=== PATIENT | female | born 1970 | race Caucasian/White ===

== ENCOUNTER 2016-11-03 08:40 | Emergency (ER) | payer OTHER ==
[2016-11-03 08:45] VITALS: BMI 20.6
--- NOTE | 2016-11-03 09:15 | PDOC ---
History of Present Illness - General Chief Complaint: Revisit, Lab Variance Stated Complaint: REVISIT/ABNORMAL CT SCAN RESULT Time Seen by Provider: 11/03/16 08:50 History Source: Patient Exam Limitations: No Limitations - History of Present Illness Initial Comments: 11/03/16 09:10 Patient is a 45 year old otherwise healthy woman here today with abnormal imaging results. She has a CT scan that showed "nonspecific wall thickening is noted involving the lower third of the cecum as well as the proximal and middle thids of the appendix." She had the CT scan 3 days ago after reporting to her PCP with abdominal pain 5 days ago. She endorses nausea, fevers and a headache in addition to the abdominal pain 5 days ago. She's currently asymptomatic. She denies abdominal pain, nausea, vomiting, shortness of breath, chest pain, fevers , chills, and constipation. Past History - Past Medical History Allergies/Adverse Reactions: Allergies Allergy/AdvReac Type Severity Reaction Status Date / Time No Known Allergies Allergy Verified 11/03/16 10:08 Home Medications: Ambulatory Orders NK [No Known Home Medication] 11/03/16 Suicide Attempt (Hx): No Other medical history: none - Psycho/Social/Smoking Cessation Hx Anxiety: No Suicidal Ideation: No Smoking History: Never smoked Have you smoked in the past 12 months: No Information on smoking cessation initiated: No Hx Alcohol Use: No Drug/Substance Use Hx: No Substance Use Type: None Review of Systems - Review of Systems Constitutional: No: Chills, Fever Respiratory: No: Cough, Shortness of Breath Cardiac (ROS): No: Chest Pain, Lightheadedness ABD/GI: No: Constipated, Diarrhea, Nausea, Vomiting : No: Dysuria, Flank Pain Musculoskeletal: No: Joint Pain Neurological: No: Headache, Dizziness *Physical Exam - Vital Signs Last Vital Signs Temp Pulse Resp BP Pulse Ox 98.3 F 82 18 128/75 100 11/03/16 08:42 11/03/16 08:42 11/03/16 08:42 11/03/16 08:42 11/03/16 08:42 - Physical Exam Comments: 11/03/16 09:15 Gen: Well nourished, In no acute distress CV: RRR, no murmurs rubs or gallops Lungs: Normal work of breathing, clear to auscultation bilaterally Abd: Soft, nontender, normal bowel sounds Ext: 2+ pulses in both lower extremities, no edema Neuro: Awake, alert, CN2-12 intact, no focal neuro deficits ED Treatment Course - LABORATORY CBC & Chemistry Diagram: 11/03/16 09:50 11/03/16 09:50 Medical Decision Making - Medical Decision Making 11/03/16 09:18 Patient is a otherwise healthy 45F here today with a complaint of abnormal imaging results. No complaints today. Physical exam normal. Vital signs stable. Differential includes, but is not limited to: primary cecal/appendiceal infection/inflammation vs neoplastic disease. Will draw labs to confirm there's no evidence of anemia or an acute active infection. 11/03/16 12:16 Dr Santizo contacted. In agreement to consult Dr Arreola for surgical evaluation. Patient remains pain free with normal and stable vital signs. 11/03/16 13:26 Dr Arreola evaluated the patient and recommends outpatient follow up through the patient's primary care provider. Patient remains pain free, vital signs normal stable. Will discharge. *DC/Admit/Observation/Transfer Diagnosis at time of Disposition: Abdominal pain Qualifiers: Abdominal location: right lower quadrant Qualified Code(s): R10.31 - Right lower quadrant pain - Discharge Dispostion Disposition: HOME Condition at time of disposition: Good Admit: No - Referrals Referrals: David Santizo MD [Primary Care Provider] - - Patient Instructions Printed Discharge Instructions: DI for Abdominal Pain-Adult - Attestations Scribe Attestion: 11/03/16 13:24 I, Dr. Gamal Sanchez, attest that this document has been prepared under my direction and personally reviewed by me in its entirety. I further attest, that it accurately reflects all work, treatment, procedures and medical decision -making performed by me.
--- NOTE | 2016-11-03 09:58 | PDOC ---
Attending Attestation - Resident Resident Name: Gamal Sanchez - ED Attending Attestation I have performed the following: I have examined & evaluated the patient, The case was reviewed & discussed with the resident, I agree w/resident's findings & plan, Exceptions are as noted - HPI HPI: 11/03/16 09:58 healthy 45y/o F sent for further evaluation of abdominal pain. Pt in [facility], developed periumbilical abd pain 6d ago that increased in severity then localized the the RLQ. Last about one day then resolved to a dull 1/10 ache in the RLQ. Saw PMD 5d ago, CTAP performed 3d ago, called last night noting abnormalities in the RLQ. asx now. no pain. no f/c/n/v/d/c. - Physicial Exam PE: 11/03/16 09:59 VSS abd soft/nt/nd. bs nl. no guarding/rebound/referred pain. no cvat - Medical Decision Making 11/03/16 09:59 Patient seen and evaluated with the resident. I agree with the overall evaluation, assessment, and management with the following summary of visit: 45-year-old female with good history for appendicitis since to the ED for further evaluation of an abnormal CAT scan performed 3 days ago, 3 days following her symptoms. She is currently asymptomatic and her abdominal exam is completely benign. Question resolved infectious versus other inflammatory or neoplastic process. Will check labs and urinalysis Given her clinical presentation, will discuss with Dr. Santizo and consider avoiding repeat CT if possible.
[2016-11-03 10:15] LABS: BASOPHIL 0.9 % (0-2.0); EOSINOPHIL 1.1 % (0-4.5); MCH 31.7 pg (25.7-33.7); MEAN CELL VOLUME 90.7 fl (80-96); MEAN PLT VOLUME 7.1 fl (7.5-11.1); NEUTROPHILS 64.6 % (42.8-82.8); PLATELET COUNT 344 K/MM3 (134-434); RDW 12.4 % (11.6-15.6); WHITE BLOOD COUNT 7.4 K/mm3 (4.0-10.0)
[2016-11-03 10:20] LABS: URINE APPEARANCE CLEAR; URINE BILIRUBIN NEGATIVE (NEGATIVE); URINE BLOOD NEGATIVE (NEGATIVE); URINE COLOR LTYELLOW; URINE GLUCOSE (UA) NEGATIVE (NEGATIVE); URINE KETONE NEGATIVE (NEGATIVE); URINE LEUK ESTERASE NEGATIVE (NEGATIVE); URINE NITRITE NEGATIVE (NEGATIVE); URINE PROTEIN NEGATIVE (NEGATIVE); URINE UROBILINOGEN NEGATIVE E.U./dl (0.2-1.0)
[2016-11-03 10:34] LABS: ALBUMIN 3.7 g/dl (3.4-5.0); ALK PHOS 78 U/L (45-117); ANION GAP 9 (8-16); BILIRUBIN,TOTAL 0.4 mg/dL (0.2-1.0); CALCIUM 9.1 mg/dL (8.5-10.1); CO2 25 mmol/L (21-32); CREATININE 0.6 mg/dL (0.55-1.02); GLUCOSE,RANDOM 87 mg/dL (74-106); SGOT/AST 17 U/L (15-37); SGPT/ALT 28 U/L (12-78); TOT PROT 7.3 g/dl (6.4-8.2)
[2016-11-03 13:21] VITALS: BP 116/62; PULSE 71; TEMP 98.2
--- NOTE | 2016-11-03 13:43 | CONSULT ---
Consult Consult Specialty:: General Surgery Referred by:: Dr. Santizo Reason for Consultation:: RLQ pain and CT with mild appendicocecal inflammation - History of Present Illness Chief Complaint: abdominal pain last week with abnormal CT findings History of Present Illness: 45yo healthy F had periumbilical pain last Wednesday morning that she thought was gas, which localized more to RLQ by the middle of the day. It was ~9 /10 at worst, but she still ate that day, though had less appetite at dinner. No nausea or vomiting. Subjective fever (her thought she had one per pt) , no chills. No change in bowel habits, having regular BMs. No dysuria, though urine darkened a bit to orange at one point. The pain was still there Wednesday , but less, so she called and got appt with Dr. Santizo/PMD for . It was almost gone by the time she saw him. She said the nurse told her her urine might be infected then, but she has had no urinary symptoms. She was sent for CT , done 10/31, which was read as showing mild inflammation of the proximal cecum and appendix with no periappendiceal inflammatory changes. Dr. Santizo had her come back to the ER for evaluation, and she came in today. She now has no pain or tenderness, no bowel or bladder complaints, no f/c, no n/ v, eating well. In ER, wbc 7.4, afebrile. UA negative. Surgery is asked to see her to evaluate for possible appendicitis or need for intervention. - History Source History Provided By: Patient Limitations to Obtaining History: No Limitations - Past Medical History ...LMP: 10/20/16 (about 2 wks ago) ...: No ...Para: 4 ( x4) - Past Surgical History Past Surgical History: Yes: None - Alcohol/Substance Use Hx Alcohol Use: No History of Substance Use: reports: None - Smoking History Smoking history: Never smoked Have you smoked in the past 12 months: No - Social History ADL: Independent History of Recent Travel: No Home Medications - Allergies Allergies/Adverse Reactions: Allergies Allergy/AdvReac Type Severity Reaction Status Date / Time No Known Allergies Allergy Verified 11/03/16 10:08 - Home Medications Home Medications: Ambulatory Orders NK [No Known Home Medication] 11/03/16 Family Disease History - Family Disease History Family Disease History: Diabetes: Father Review of Systems - Review of Systems Constitutional: reports: Fever (once subjective, last week). denies: Chills, Loss of Appetite (mild at dinner the first night with pain) Eyes: denies: Blurred Vision, Double Vision HENT: denies: Nasal Congestion, Throat Pain Cardiovascular: denies: Chest Pain, Palpitations Respiratory: denies: Cough, SOB Gastrointestinal: reports: Abdominal Pain (now resolved), Bloating (with first episode). denies: Constipation, Diarrhea, Melena, Nausea, Rectal Bleeding, Vomiting Genitourinary: denies: Burning, Dysuria Musculoskeletal: denies: Back Pain, Joint Pain Integumentary: denies: Change in Color, Rash Neurological: reports: Headache (last week). denies: Dizziness Endocrine: denies: Unexplained Weight Gain, Unexplained Weight Loss Physical Exam Vital Signs: Vital Signs Temperature 98.2 F 11/03/16 13:19 Pulse Rate 71 11/03/16 13:19 Respiratory Rate 18 11/03/16 13:19 Blood Pressure 116/62 11/03/16 13:19 O2 Sat by Pulse Oximetry (%) 99 11/03/16 13:19 Constitutional: Yes: Well Nourished, No Distress, Calm Eyes: Yes: Conjunctiva Clear, EOM Intact HENT: Yes: Atraumatic, Normocephalic Cardiovascular: Yes: Regular Rate and Rhythm. No: Murmur Respiratory: Yes: Regular, CTA Bilaterally Gastrointestinal: Yes: Normal Bowel Sounds, Soft. No: Distention, Tenderness ( even with deep palpation RLQ) ...Rectal Exam: Yes: Deferred Renal/: No: CVA Tenderness - Left, CVA Tenderness - Right Musculoskeletal: No: Back Pain, Joint Swelling Extremities: No: Cool, Cyanosis Edema: No Peripheral Pulses WNL: Yes Integumentary: No: Jaundice, Rash Neurological: Yes: Alert, Oriented Labs: CBC, BMP 11/03/16 09:50 11/03/16 09:50 Urine Test Results Urine Color Ltyellow 11/03/16 09:50 Urine Appearance Clear 11/03/16 09:50 Urine pH 7.0 (5.0-8.0) 11/03/16 09:50 Urine Protein Negative (NEGATIVE) 11/03/16 09:50 Urine Glucose (UA) Negative (NEGATIVE) 11/03/16 09:50 Urine Ketones Negative (NEGATIVE) 11/03/16 09:50 Urine Blood Negative (NEGATIVE) 11/03/16 09:50 Urine Nitrite Negative (NEGATIVE) 11/03/16 09:50 Urine Bilirubin Negative (NEGATIVE) 11/03/16 09:50 Ur Leukocyte Esterase Negative (NEGATIVE) 11/03/16 09:50 Imaging - Results Cat Scan: Report Reviewed, Image Reviewed Problem List - Problems (1) RLQ abdominal pain Assessment/Plan: history suspicious for mild appendicitis, but resolved with no medication spontaneously pt is completely asymptomatic one week later if symptoms recur, even in different form, she was advised to call Dr. Santizo and return to an ER for prompt evaluation appendectomy not indicated at this time, though if symptoms recur, would recommend acutely for diagnosed appendicitis I gave her my card, in case she and Dr. Santizo want her to see me in the office for anything elective. Code(s): R10.31 - RIGHT LOWER QUADRANT PAIN (2) Abnormal finding on CT scan Assessment/Plan: CT findings difficult to determine if represent resolving appendicitis, intestinal inflammation, IBD, malignancy or infectious process. With no current symptoms, would recommend referral to GI to evaluate for colonoscopy despite age <50 to r/o pathology at cecum/appendix explaining CT abnormality. If negative, would only intervene if symptoms recur. Discussed with Dr. Santizo and ER staff. Thank you for the opportunity to participate in the care of this patient. Code(s): R93.8 - ABNORMAL FINDINGS ON DIAGNOSTIC IMAGING OF BODY STRUCTURES
== END 2016-11-03 13:50 | disposition home or self-care (01) ==
LOC: JER 08:40
DX: R10.31 Right lower quadrant pain (principal); R93.8 Abnormal findings on diagnostic imaging of other specified body structures
CPT/HCPCS: 36415; 80053; 81003; 83690; 84703; 85025; 99282-25

== ENCOUNTER 2019-05-23 05:07 | Day surgery (SDC) | payer BC ==
[2019-05-22 12:42] VITALS: BMI 21.2
[2019-05-23] MEDS ORDERED: ONDANSETRON 4 MG/2 ML VIAL IVPUSH PRN (07:02)
[2019-05-23] MEDS ORDERED: IBUPROFEN 600 MG TABLET (FP) PO PRN (07:02)
[2019-05-23] MEDS ORDERED: oxyCODONE HCL 5 MG TABLET PO PRN (07:02)
[2019-05-23] MEDS ORDERED: IBUPROFEN 800 MG/8 ML IJ IVPB PRN (07:02)
--- NOTE | 2019-05-23 07:02 | OP ---
Operative Note - Note: Operative Date: 05/23/19 Pre-Operative Diagnosis: 48yo with menometrorrhagia, thick endometrium Operation: Hysteroscopy, myomectomy, polypectomy, D&C Findings: 1. Posterior wall Stage 2 fibroid - resected partially 2. Endometrial and cervical polyps - resected fully 3. Overgrown Endometrium - resected circumstantially Post-Operative Diagnosis: Same as Pre-op Surgeon: Sheryl Kothari Anesthesiologist/BARRELHEAD INSPECTOR: Shyam Jimenez Anesthesia: MAC Specimens Removed: 1. Shavings of fibroid, polyps, endometrium Estimated Blood Loss (mls): 25 Drains & Tubes with Location: Fluid defficit - 0cc Drains, Volume Out (mls): 20 Fluid Volume Replaced (mls): 500 Operative Report Dictated: Yes
--- NOTE | 2019-05-23 07:02 | HP ---
History & Physical Update - History History: No Change (H&P reviewed and is unchanged Consent signed and witnessed) - Physical Physical: No Change - Assessment Assessment: No Change - Plan Plan: No Change
[2019-05-23] MEDS ORDERED: ELECTROLYTE-148 SOLN 1,000 ML IV SCH (07:15)
[2019-05-23] MEDS ORDERED: PROPOFOL 20 ML ONE ×2 (07:53→08:41)
[2019-05-23] MEDS ORDERED: MIDAZOLAM HCL 2 MG/2 ML SINGLE DOSE VIAL ONE (07:53)
[2019-05-23] MEDS ORDERED: DEXAMETHASONE SOD PHOSPHATE 4 MG/1 ML VIAL ONE (07:53)
[2019-05-23] MEDS ORDERED: LIDOCAINE HCL/PF 2% SDV 5ML VIAL ONE (07:53)
[2019-05-23] MEDS ORDERED: LACTATED RINGERS SOLUTION 1,000 ML IV SCH (10:15)
[2019-05-23 11:59] VITALS: TEMP 97.4
[2019-05-23 14:24] VITALS: BP 125/71; PULSE 84
--- NOTE | 2019-05-23 16:39 | OP ---
DATE OF OPERATION: 05/23/2019 PREOPERATIVE DIAGNOSIS: A 48-year-old with menometrorrhagia and thick endometrium. OPERATION: Hysteroscopy, myomectomy, polypectomy, dilation and curettage. FINDINGS: 1. Posterior wall stage 2 fibroid resected partially. 2. Endometrial and cervical polyps resected fully. 3. Overgrown endometrium resected circumferentially. POSTOPERATIVE DIAGNOSIS: A 48-year-old with menometrorrhagia and thick endometrium. SURGEON: Juanjo Ambrose MD ANESTHESIOLOGIST: Shyam Jimenez MD ANESTHESIA: MAC. SPECIMENS REMOVED: Shavings of fibroid polyps and endometrium. DESCRIPTION OF OPERATIVE PROCEDURE: After assuring informed consent, patient was brought to the operating room where she was placed in dorsal lithotomy position, and MAC anesthesia was administered. Perineum and vagina were prepped and draped in sterile fashion. After calling time-out, patient's urinary bladder was drained of 20 mL of urine. Sarah retractors were placed into the vagina, and anterior cervical lip was articulated with single-tooth tenaculum. The cervix was very parous and easily dilated to accommodate 6.3-mm Symphion hysteroscope, which was introduced into the uterus without any difficulty. Above findings were noted. A resectoscope instrument was introduced through the hysteroscope, and circumferential resection of the endometrium as well as fibroid and 2 polyps was achieved without any difficulty. Excellent hemostasis was noted. All instruments used removed from uterus, cervix, and vagina. The single-tooth tenaculum sites were cauterized with silver nitrate. Estimated blood loss 25 mL. Patient received 500 mL of IV fluids, and fluid deficit was 0 mL. Instrument and sponge count was correct x2 at the end of the procedure. The patient tolerated the procedure well and was brought to the recovery room in stable condition. JUANJO AMBROSE M.D. [id number]
--- NOTE | 2019-05-25 17:40 | PATH ---
Surgical Pathology Report Patient Name: RADHA OCASIO Med. Rec. #: [id number] /Age/Gender: 1970 (Age: 48) / F Account: [id number] Location: [facility] SURGICAL Taken: 05/23/2019 Received: 05/23/2019 Reported: 05/25/2019 Physicians: Sheryl Kothari M.D. Specimen(s) Received POLYP, CERVICAL ENDOMETRIAL SUBMUCOSAL FIBROID, ENDOMETRIAL CURETTINGS Clinical History Menorrhagia, thick endometrium Final Diagnosis ENDOMETRIAL AND ENDOCERVICAL POLYPS, SUBMUCOSAL FIBROID, ENDOMETRIAL CURETTINGS : FRAGMENTS OF ENDOMETRIAL AND ENDOCERVICAL POLYP. SMOOTH MUSCLE BUNDLES, CONSISTENT WITH SUBMUCOSAL LEIOMYOMA. SEPARATE FRAGMENTS OF DISORDERED PROLIFERATIVE ENDOMETRIUM WITH FOCAL CILIATED METAPLASIA. Electronically Signed Anupama Caraballo M.D. Gross Description Received in formalin, labeled "endometrial and endocervical polyps, submucosal fibroid, endometrial curettings" are multiple denise, irregular portions of soft tissue measuring 4.0 x 4.0 x 0.5 cm in aggregate. The specimen is submitted in 4 cassettes. KWS/05/23/2019 sulki/05/23/2019
== END 2019-05-23 13:30 | disposition home or self-care (01) ==
LOC: JASU-SURG 05:07
PROVIDERS: ATTEND Obstetrics & Gynecology
PROC: 0UDB7ZX Extraction of Endometrium, Via Natural or Artificial Opening, Diagnostic (ICD-10-PCS; 2019-05-23)
PROC: 0UJD8ZZ Inspection of Uterus and Cervix, Via Natural or Artificial Opening Endoscopic (ICD-10-PCS; 2019-05-23)
PROC: 0UB98ZZ Excision of Uterus, Via Natural or Artificial Opening Endoscopic (ICD-10-PCS; principal; 2019-05-23 09:00)
PROC: 0UBC7ZX Excision of Cervix, Via Natural or Artificial Opening, Diagnostic (ICD-10-PCS; 2019-05-23 09:00)
PROC: 0UB97ZX Excision of Uterus, Via Natural or Artificial Opening, Diagnostic (ICD-10-PCS; 2019-05-23 09:00)
DX: N92.1 Excessive and frequent menstruation with irregular cycle (principal); D25.9 Leiomyoma of uterus, unspecified; N84.0 Polyp of corpus uteri; N84.1 Polyp of cervix uteri
CPT/HCPCS: 94760

== ENCOUNTER 2021-07-06 03:42 | Emergency (ER) | payer BC ==
[2021-07-06 04:08] VITALS: BP 120/74; PULSE 77; TEMP 98; BMI 25.2
[2021-07-06 04:31] LABS: BASO % 0.6 % (0-2.0); EOS % 0.6 % (0-4.5); HEMATOCRIT 36.2 % (32.4-45.2); HEMOGLOBIN 12.7 GM/dL (10.7-15.3); LYMPH % 13.6 % (8-40); MCH 31.8 pg (25.7-33.7); MCHC 35.1 g/dl (32.0-36.0); MEAN CELL VOLUME 90.6 fl (80-96); MEAN PLT VOLUME 7.2 fl (7.5-11.1); MONO % 4.9 % (3.8-10.2); NEUT % 80.3 % (42.8-82.8); PLATELET COUNT 295 10^3/uL (134-434); RBC 3.99 M/mm3 (3.60-5.2); RDW 12.9 % (11.6-15.6); WHITE BLOOD COUNT 12.6 K/mm3 (4.0-10.0)
[2021-07-06 04:52] LABS: CHLORIDE 110 mmol/L (98-107); SODIUM 141 mmol/L (136-145)
[2021-07-06 04:54] LABS: BLOOD UREA NITROGEN 10.2 mg/dL (7-18); CALCIUM 8.6 mg/dL (8.5-10.1)
[2021-07-06 04:55] LABS: ALBUMIN 3.4 g/dl (3.4-5.0); ANION GAP 6 MMOL/L (8-16); CO2 25 mmol/L (21-32); GLUCOSE,RANDOM 106 mg/dL (74-106)
[2021-07-06 04:58] LABS: CREATININE 0.6 mg/dL (0.55-1.3); SGOT/AST 15 U/L (15-37); SGPT/ALT 17 U/L (13-61)
[2021-07-06 04:59] LABS: BILIRUBIN,TOTAL 0.3 mg/dL (0.2-1)
[2021-07-06 05:00] LABS: TOT PROT 6.1 g/dl (6.4-8.2)
[2021-07-06 05:01] LABS: ALK PHOS 67 U/L (45-117)
[2021-07-06 05:36] LABS: EPI CELLS 33 /uL (0-25.1); HYALINE CASTS 1 /uL (0-3.1); URINE APPEARANCE CLEAR; URINE BACTERIA 531 /uL (0-1359); URINE BILIRUBIN NEGATIVE (NEGATIVE); URINE COLOR YELLOW; URINE GLUCOSE (UA) NEGATIVE (NEGATIVE); URINE KETONE NEGATIVE (NEGATIVE); URINE LEUK ESTERASE 1+ (NEGATIVE); URINE NITRITE NEGATIVE (NEGATIVE); URINE PROTEIN NEGATIVE (NEGATIVE); URINE RBC 19 /uL (0-23.9); URINE UROBILINOGEN 0.2 mg/dL (0.2-1.0); URINE WBC 80 /uL (0-25.8)
== END 2021-07-06 05:56 | disposition home or self-care (01) ==
LOC: JER 03:42
DX: N30.01 Acute cystitis with hematuria (principal); R55 Syncope and collapse
CPT/HCPCS: 36415; 70450-TC; 80053; 81003; 84484; 84703; 85025; 93005; 93010; 99285-25